=== PATIENT | male | born 1975 | race Caucasian/White ===

== ENCOUNTER 2023-04-17 15:28 | Emergency (ER) | payer OTHER ==
[~2023-04-17] VITALS: Ht 190.5 cm; Wt 114.7 kg
[2023-04-17 15:38] VITALS: BP 140/109
--- NOTE | 2023-04-17 15:40 | ED Lower Extremity ---
General Chief Complaint: Lower Extremity Stated Complaint: R ANKLE PAIN Source: patient Exam Limitations: no limitations History of Present Illness Date Seen by Provider: Apr 17, 2023 Time Seen by Provider: 15:28 Initial Comments 47-year-old male presents to the emergency department today for right lateral ankle pain. 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 He has been able to bear weight but has significant tenderness at the distal aspect of the right ankle laterally. All other systems reviewed and negative except documented per HPI. Voice recognition software was used to help create this chart Allergies and Home Medications Allergies Coded Allergies: No Known Drug Allergies (Unverified , 04/17/23) Patient Home Medication List Home Medication List Reviewed: Yes Review of Systems Constitutional: see HPI Physical Exam Vital Signs Vital Signs - First Documented 04/17/23 15:38 Temp 36.2 Pulse 110 Resp 18 B/P (MAP) 140/109 (119) Pulse Ox 99 O2 Delivery Room Air Capillary Refill : Height, Weight, BMI Height: '" Weight: lbs. oz. kg; BMI Method: General Appearance: WD/WN, no apparent distress Hips: bilateral hip non-tender, bilateral hip normal inspection, bilateral hip normal range of motion Legs: bilateral leg non-tender, bilateral leg normal inspection, bilateral leg normal range of motion Knees: bilateral knee non-tender, bilateral knee normal inspection, bilateral knee normal range of motion Ankles: right ankle swelling (Swelling laterally. There is tenderness to palpation of the distal portion of the lateral malleolus. Neurovascular motor and sensory intact.) Feet: right foot non-tender, right foot normal inspection, right foot normal range of motion Neurologic/Tendon: normal sensation, normal motor functions, normal tendon functions Progress/Results/Core Measures Results/Orders My Orders Orders - DEVENDRA GARCIA DO Ankle 3 View Right (04/17/23 15:38) Vital Signs/I&O 04/17/23 15:38 Temp 36.2 Pulse 110 Resp 18 B/P (MAP) 140/109 (119) Pulse Ox 99 O2 Delivery Room Air Departure Communication (Admissions) Independently reviewed the x-rays and there is no fracture, dislocation or other acute abnormality. Discharged home with supportive care. Impression Primary Impression: Right ankle sprain Qualified Codes: S93.401A - Sprain of unspecified ligament of right ankle, initial encounter Disposition: 01 HOME, SELF-CARE Condition: Stable Departure-Patient Inst. Patient Instructions: Ankle Sprain ED Add. Discharge Instructions: Alternate ibuprofen and Tylenol as needed for pain. Ice the area and elevate it when not in use. Follow-up with your primary doctor for any nonemergent needs. All discharge instructions reviewed with patient and/or family. Voiced understanding. DEVENDRA GARCIA DO Apr 17, 2023 15:40
--- NOTE | 2023-04-17 15:55 | Diagnostic Imaging Report ---
Indication: Twisting injury with lateral pain. Findings: A 3 view ankle shows considerable soft tissue swelling lateral to the intact distal fibula. Malleolar intact. No disruption of the mortise. The articular surfaces smooth. The base of the 5th metatarsal appeared intact. Impression: Lateral ankle swelling but no fracture identified. Dictated by: Dictated on workstation # [id number]
== END 2023-04-17 15:51 | disposition home or self-care (01) ==
LOC: ER FS 15:30
DX: S93.491A Sprain of other ligament of right ankle, initial encounter (principal); X50.1XXA Overexertion from prolonged static or awkward postures, initial encounter
CPT/HCPCS: 73610